=== PATIENT | male | born 1940 | race Caucasian/White ===

== ENCOUNTER 2018-07-30 09:10 | Outpatient (CLI) | payer MEDICARE ==
--- NOTE | 2018-07-30 10:43 | RAD ---
AP ABDOMEN: History: Benign prostatic hyperplasia. Renal calculi. FINDINGS: Multilevel lumbar degenerative changes seen. Facet hypertrophy and vertebral body osteophytes seen. The abdominal gas pattern is nonspecific. No evidence of obvious renal calculi seen. Numerous pelvic phleboliths are seen. IMPRESSION: Lumbar degenerative changes without evidence of definite renal calculi seen. POS: [facility]
--- NOTE | 2018-07-30 11:50 | ULT ---
RENAL ULTRASOUND: History: Renal cyst. Technique: Multiple longitudinal and transverse images of the kidneys and urinary bladder obtained us ing a Multihertz curvilinear transducer. Real-time color flow images were used to evaluate the kidney s and urinary bladder. Comparison: 06-15-17 FINDINGS: Images demonstrate both kidneys to be of normal contour, axis and size. The right kidney measures 13. 5 and the left kidney 12.5 cm from pole to pole. Numerous small approximately 1 to 1.5 cm renal cortical cysts seen. A small area of hyperechogenicity is seen in the midpole of the left kidney compatible with nonobstructing left renal calculus. Overal l sonographic appearance of the kidneys are stable. The urinary bladder is unremarkable. Pre void bladder volume measures 434 mL and post void 34 mL. IMPRESSION: Bilateral renal cortical cysts. No significant interval change is seen since the previous comparison exam. POS: [facility]
== END 2018-07-30 09:11 | disposition home or self-care (01) ==
LOC: ULT 09:10
PROVIDERS: ATTEND Urology
DX: N40.1 Benign prostatic hyperplasia with lower urinary tract symptoms (principal); N20.0 Calculus of kidney; R33.9 Retention of urine, unspecified; N28.1 Cyst of kidney, acquired; M47.896 Other spondylosis, lumbar region
CPT/HCPCS: 74018; 76770

== ENCOUNTER 2024-05-13 10:57 | Emergency (ER) | payer MEDICARE ==
[2024-05-13 12:12] LABS: %Basophils 1.4 % (0.0-1.0); %Monocytes 9.6 % (0.0-10.0); %Neutrophils 51.6 % (42.0-75.0); Hematocrit 30.3 % (42.0-52.0); Hemoglobin 10.6 g/dL (14.0-18.0); Mean Corpuscular Hemoglobin 34.1 pg (27.0-31.0); Mean Corpuscular Volume 97.4 fL (78.0-98.0); Mean Platelet Volume 10.3 fL (7.4-10.4); Platelet Count 182 10x3/uL (130-400); RBC Distribution Width 13.2 % (11.5-14.5); Red Blood Cell (RBC) Count 3.11 mill/uL (4.70-6.10)
[2024-05-13 12:37] LABS: ALT (SGPT) 18 U/L (8-55); AST (SGOT) 18 U/L (5-34); Albumin 3.7 g/dL (3.4-4.8); Alkaline Phosphatase 29 U/L (40-110); Anion Gap 14 mmol/L (10-20); BUN (Urea Nitrogen) 21 mg/dL (8.4-25.7); Bilirubin, Total 0.8 mg/dL (0.2-1.2); Calc. Creatinine Clearance 0 mL/min (70-130); Calcium 8.8 mg/dL (7.8-10.44); Carbon Dioxide 22 mmol/L (23-31); Chloride 109 mmol/L (98-107); Estimated GFR 69; Globulin 2.2 g/dL (2.4-3.5); Glucose 120 mg/dL (83-110); Potassium 4.4 mmol/L (3.5-5.1); Protein, Total 5.9 g/dL (5.8-8.1); Sodium 141 mmol/L (136-145)
[2024-05-13 12:45] LABS: Troponin I Less than 0.010 ng/mL (< 0.028)
== END 2024-05-13 13:32 | disposition home or self-care (01) ==
LOC: ERS 10:57
DX: S00.03XA Contusion of scalp, initial encounter (principal); E11.9 Type 2 diabetes mellitus without complications; E03.9 Hypothyroidism, unspecified; I10 Essential (primary) hypertension; Z79.899 Other long term (current) drug therapy; Z79.84 Long term (current) use of oral hypoglycemic drugs; Z79.890 Hormone replacement therapy; W19.XXXA Unspecified fall, initial encounter
CPT/HCPCS: 36415; 70450; 80053; 84484; 85025; 93005